=== PATIENT | female | born 1970 | race African-American/Black ===

== ENCOUNTER → 2017-06-23 | Outpatient (CLI) | payer OTHER ==
[~2017-06-23] VITALS: Ht 152.4 cm; Wt 68.0 kg
[~2017-06-23] MED LIST: BENADRYL25 MG PO; DOLOGESIC CAPSU1 CAP PO; FIORICET 50-301 EACH; FLAGYL500MG; FLEXERIL 10 MG PO; KETO10TA2 PO; MOTRIN800 MG PO; ORPH100T PO; SIMVASTATIN10 MG; SINBASTATIN PO; TUSSIONEX PENNKI5 ML PO; VOLTAREM 50 MG PO; [UNRECOGNIZED DRUG - OTHER] PO
== END | disposition home or self-care (01) ==
LOC: PPHC 12:43
DX: R21 Rash and other nonspecific skin eruption (principal)

== ENCOUNTER 2017-07-20 23:09 | Emergency (ER) | payer OTHER ==
[~2017-07-20] VITALS: Ht 165.1 cm; Wt 68.0 kg
[2017-07-21] MEDS ORDERED: NORFLEX100MG PO (03:14)
[2017-07-21] MEDS ORDERED: KETO10TA2 PO (03:14)
== END 2017-07-21 03:31 | disposition home or self-care (01) ==
LOC: ER 23:09
DX: M62.838 Other muscle spasm (principal); G44.209 Tension-type headache, unspecified, not intractable

== ENCOUNTER → 2017-07-22 | Outpatient (CLI) | payer OTHER ==
[~2017-07-22] MED LIST changes: +NEURONTIN300 MG PO; +NORFLEX100MG PO; +ORPHENADRINE C100 GM
== END | disposition home or self-care (01) ==
LOC: PPHC 12:59
DX: M54.2 Cervicalgia (principal)

== ENCOUNTER → 2017-07-26 | Outpatient (CLI) | payer OTHER | END | disposition home or self-care (01) | LOC: PPHC 14:47 | DX: M54.2 Cervicalgia (principal); Z76.0 Encounter for issue of repeat prescription ==

== ENCOUNTER 2017-07-29 00:32 | Emergency (ER) | payer OTHER ==
[~2017-07-29] VITALS: Ht 165.1 cm; Wt 68.0 kg
[~2017-07-29 00:32] MED LIST changes: -NEURONTIN300 MG PO; -ORPHENADRINE C100 GM
[2017-07-29] MEDS ORDERED: ORPHENADRINE C100 GM (00:43)
[2017-07-29] MEDS ORDERED: NEURONTIN300 MG PO (07:35)
== END 2017-07-29 07:47 | disposition home or self-care (01) ==
LOC: ER 00:32
DX: M62.838 Other muscle spasm (principal)

== ENCOUNTER → 2017-08-05 | Outpatient (CLI) | payer OTHER ==
[~2017-08-05] VITALS: Ht 152.4 cm; Wt 65.8 kg
[~2017-08-05] MED LIST changes: +NEURONTIN300 MG PO; +ORPHENADRINE C100 GM
== END | disposition home or self-care (01) ==
LOC: PPHC 08-06 11:00
DX: Z01.89 Encounter for other specified special examinations (principal)

== ENCOUNTER 2017-08-06 09:40 | Outpatient (CLI) | payer OTHER | END 2017-08-06 09:49 | disposition home or self-care (01) | LOC: LAB 09:40 | DX: Z00.00 Encounter for general adult medical examination without abnormal findings (principal) ==

== ENCOUNTER 2017-08-15 13:30 | Outpatient (CLI) | payer OTHER | END 2017-08-15 13:35 | disposition home or self-care (01) | LOC: TOM 13:30 | DX: C71.9 Malignant neoplasm of brain, unspecified (principal) ==

== ENCOUNTER → 2017-08-23 | Outpatient (CLI) | payer OTHER | END | disposition home or self-care (01) | LOC: PPHC 15:20 | DX: Z01.89 Encounter for other specified special examinations (principal) ==

== ENCOUNTER 2017-08-26 10:26 | Outpatient (CLI) | payer OTHER | END 2017-08-26 10:35 | disposition home or self-care (01) | LOC: LAB 10:26 | DX: E78.4 Other hyperlipidemia (principal); R53.1 Weakness; R10.30 Lower abdominal pain, unspecified ==

== ENCOUNTER 2017-09-28 14:19 | Outpatient (CLI) | payer OTHER | END 2017-09-28 14:25 | disposition home or self-care (01) | LOC: MAMO-SONO 14:19 | DX: Z12.31 Encounter for screening mammogram for malignant neoplasm of breast (principal) ==

== ENCOUNTER 2017-10-28 16:09 | Outpatient (CLI) | payer OTHER | END 2017-10-28 16:13 | disposition home or self-care (01) | LOC: LAB 16:09 | DX: N39.0 Urinary tract infection, site not specified (principal) ==

== ENCOUNTER 2017-11-25 14:21 | Outpatient (CLI) | payer OTHER | END 2017-11-25 14:37 | disposition home or self-care (01) | LOC: SONOGRAMA 14:21 | DX: N85.2 Hypertrophy of uterus (principal) ==

== ENCOUNTER 2017-12-08 14:19 | Outpatient (CLI) | payer OTHER | END 2017-12-08 14:25 | disposition home or self-care (01) | LOC: RAD 14:19 | DX: M54.89 Other dorsalgia (principal) ==

== ENCOUNTER 2018-02-19 11:21 | Emergency (ER) | payer OTHER ==
[~2018-02-19] VITALS: Ht 165.1 cm; Wt 68.0 kg
[~2018-02-19 11:21] MED LIST changes: +LIDODERM1 EACH TD; +METHOCARBAMOL500 MG PO
[2018-02-19] MEDS ORDERED: SIMVASTATIN10 MG (11:32)
== END 2018-02-19 12:40 | disposition home or self-care (01) ==
LOC: ER 11:21
DX: S61.241A Puncture wound with foreign body of left index finger without damage to nail, initial encounter (principal); W46.0XXA Contact with hypodermic needle, initial encounter; Y93.89 Activity, other specified; Y92.69 Other specified industrial and construction area as the place of occurrence of the external cause; Y99.8 Other external cause status